=== PATIENT | female | born 1950 | race Caucasian/White ===

== ENCOUNTER 2018-11-26 22:19 | Emergency (ER) | payer MEDICARE, BC ==
[2018-11-26] MEDS ORDERED: METOCLOPRAMIDE HCL ORAL SOLN 10 MG/10 ML UDCUP PO ONE (23:53)
[2018-11-26] MEDS ORDERED: MAG HYDROX/AL HYDROX/SIMETH SUSP 30 ML UDCUP PO ONE (23:53)
[2018-11-26] MEDS ORDERED: LIDOCAINE 2% VISCOUS SOLN 20 ML UDCUP PO ONE (23:53)
--- NOTE | 2018-11-27 00:06 | ER Document Report ---
ED Medical Screen (RME) - General Chief Complaint: Lower Abdominal Pain Stated Complaint: ABDOMINAL PAIN Time Seen by Provider: 11/27/18 00:03 Primary Care Provider: OLGA THOMPSON MD [Primary Care Provider] - Follow up as needed TRAVEL OUTSIDE OF THE [place] IN LAST 30 DAYS: No - HPI Notes: 11/27/18 00:04 Patient is a 68-year-old female with a history of IBS-D and acid reflux presents to the emergency department for the chief complaint of abdominal pain and colon spasming. Patient states that earlier today she developed left flank pain that radiates into the left lower quadrant. Patient states that it feels like a colon spasm. She denies diarrhea but states that the stool is soft and appears to be coming out faster. Patient does report a change in her diet with incre ased liquids and fruit. Patient states that she believes that the change in diet has an exacerbation of her IBS. Patient also reports a continuous acid reflux and an aching type sensation in her epigastric area. - Related Data Allergies/Adverse Reactions: cimetidine [From Tagamet] Allergy (Verified 11/26/18 23:45) loratadine [From Claritin] Allergy (Verified 11/26/18 23:45) Past Medical History Endocrine Medical History: Reports: Hx Diabetes Mellitus Type 2 - "boarderline" Renal/ Medical History: Denies: Hx Peritoneal Dialysis GI Medical History: Reports: Hx Gastroesophageal Reflux Disease Past Surgical History: Reports: Hx Hysterectomy Physical Exam - Vital signs Vitals: Temp Pulse Resp BP 98.2 F 63 18 144/60 H 11/26/18 22:25 11/26/18 22:25 11/26/18 22:25 11/26/18 22:25 - Abdominal Inspection: Normal Distension: No distension Bowel sounds: Normal Tenderness: Nontender Organomegaly: No organomegaly Course - Re-evaluation Re-evalutation: 11/27/18 00:06 I have greeted and performed a rapid initial assessment of this patient. A comprehensive ED assessment and evaluation of the patient, analysis of test results and completion of the medical decision making process will be conducted by additional ED providers. - Vital Signs Vital signs: Temp Pulse Resp BP Pulse Ox 98.2 F 63 18 144/60 H 11/26/18 22:25 11/26/18 22:25 11/26/18 22:25 11/26/18 22:25 Doctor's Discharge - Discharge Referrals: OLGA THOMPSON MD [Primary Care Provider] - Follow up as needed
[2018-11-27 00:19] LABS: ABSOLUTE LYMPHOCYTES (AUTO) 2.1 10^3/uL (0.5-4.7); ABSOLUTE MONOCYTES (AUTO) 0.5 10^3/uL (0.1-1.4); ABSOLUTE NEUT (AUTO) 11.4 10^3/uL (1.7-8.2); BASOPHILS % (AUTO) 0.2 % (0-2); HEMATOCRIT 42.7 % (36.0-47.0); HEMOGLOBIN 14.1 g/dL (12.0-15.5); LYMPHOCYTES % (AUTO) 14.7 % (13-45); MEAN CORPUSCULAR HEMOGLOBIN 30.6 pg (27.0-33.4); MEAN CORPUSCULAR VOLUME 93 fl (80-97); MONOCYTES % (AUTO) 3.8 % (3-13); PLATELET COUNT 312 10^3/uL (150-450); RED CELL DISTRIBUTION WIDTH 12.5 % (11.5-14.0); SEGMENTED NEUTROPHILS % (AUTO) 81.3 % (42-78); TOTAL CELLS COUNTED % (AUTO) 100 %
[2018-11-27 00:21] LABS: APPEARANCE,URINE CLEAR; BILIRUBIN,URINE NEGATIVE (NEGATIVE); COLOR,URINE YELLOW; GLUCOSE, URINE NEGATIVE (NEGATIVE); KETONES,URINE 20 mg/dL (NEGATIVE); LEUKOCYTE ESTERASE,URINE NEGATIVE (NEGATIVE); NITRITE,URINE NEGATIVE (NEGATIVE); PROTEIN,URINE NEGATIVE (NEGATIVE); URINE SPECIFIC GRAVITY 1.019; UROBILINOGEN,URINE NEGATIVE mg/dL (<2.0)
[2018-11-27 00:35] LABS: ALANINE AMINOTRANSFERASE 25 U/L (9-52); ALBUMIN 4.8 g/dL (3.5-5.0); ALKALINE PHOSPHATASE 77 U/L (38-126); ANION GAP 12 (5-19); ASPARTATE AMINO TRANSFERASE 17 U/L (14-36); BILIRUBIN,DIRECT 0.3 mg/dL (0.0-0.4); BILIRUBIN,TOTAL 0.5 mg/dL (0.2-1.3); BLOOD UREA NITROGEN 27 mg/dL (7-20); CALCIUM 10.5 mg/dL (8.4-10.2); CARBON DIOXIDE 27 mmol/L (22-30); CHLORIDE 104 mmol/L (98-107); GLUCOSE 143 mg/dL (75-110); LIPASE 60.9 U/L (23-300); POTASSIUM 4.9 mmol/L (3.6-5.0); SODIUM 143.4 mmol/L (137-145); TOTAL PROTEIN 7.4 g/dL (6.3-8.2)
[2018-11-27] MEDS ORDERED: DICYCLOMINE HCL INJ 20 MG/2 ML AMPULE IM ONE (01:17)
--- NOTE | 2018-11-27 02:42 | RADIOLOGY REPORT (SQ) ---
CLINICAL HISTORY: abdominal pain COMPARISON: None. TECHNIQUE: XR ABDOMEN 2 VIEWS SUPINE ERECT 11/27/2018 2:10 AM CDT FINDINGS: There is large amount of stool. There is a calcification near the lower pole of the left kidney measuring 7 mm. Osseous structures are grossly unremarkable. IMPRESSION: Constipation. Possible left nephrolithiasis.
--- NOTE | 2018-11-27 02:53 | ER Document Report ---
ED General - General Chief Complaint: Lower Abdominal Pain Stated Complaint: ABDOMINAL PAIN Time Seen by Provider: 11/27/18 00:03 Primary Care Provider: OLGA THOMPSON MD [HONORARY] - Follow up as needed Notes: Patient is a pleasant 68-year-old female presents with complaint of some abdominal pain is mostly in upper and left side of the abdomen. Some nausea. No vomiting. No diarrhea. Last bowel movement was this morning. No blood in her stool. She does history irritable bowel syndrome and says she feels as if she is having bowel spasm. No fevers. No other complaints at this time. TRAVEL OUTSIDE OF THE [place] IN LAST 30 DAYS: No - Related Data Allergies/Adverse Reactions: cimetidine [From Tagamet] Allergy (Verified 11/26/18 23:45) loratadine [From Claritin] Allergy (Verified 11/26/18 23:45) Past Medical History - Social History Smoking Status: Never Smoker Frequency of alcohol use: None Drug Abuse: None Family History: Reviewed & Not Pertinent Patient has suicidal ideation: No Patient has homicidal ideation: No Endocrine Medical History: Reports: Hx Diabetes Mellitus Type 2 - "boarderline" Renal/ Medical History: Denies: Hx Peritoneal Dialysis GI Medical History: Reports: Hx Gastroesophageal Reflux Disease Past Surgical History: Reports: Hx Hysterectomy Review of Systems - Review of Systems Notes: My Normal Review Basic REVIEW OF SYSTEMS: CONSTITUTIONAL : Denies fever, chills, or sweats. Denies recent illness. CARDIOVASCULAR: Denies chest pain. RESPIRATORY: Denies cough, cold, or chest congestion. Denies shortness of breath, difficulty breathing, or wheezing. GASTROINTESTINAL: As abdominal pain. Denies nausea, vomiting, or diarrhea. MUSCULOSKELETAL: Denies neck or back pain or joint pain or swelling. SKIN: Denies rash or skin lesions. NEUROLOGICAL: Denies altered mental status. ALL OTHER SYSTEMS REVIEWED AND NEGATIVE. Physical Exam - Vital signs Vitals: Temp Pulse Resp BP 98.2 F 63 18 144/60 H 11/26/18 22:25 11/26/18 22:25 11/26/18 22:25 11/26/18 22:25 - Notes Notes: General Appearance: Well nourished, alert, cooperative, no acute distress, mild obvious discomfort. Vitals: reviewed, See vital signs table. Head: no swelling or tenderness to the head Eyes: PERRL, EOMI, Conjuctiva clear Mouth: No decreasd moisture Lungs: No wheezing, No rales, No rhonci, No accessory muscle use, good air exchange bilaterally. Heart: Normal rate, Regular rythm, No murmur, no rub Abdomen: Normal BS, soft, No rigidity, No reproducible abdominal tenderness to palpation, No guarding, no rebound, no abdominal masses, no organomegaly Extremities: good pulses in all extremities, no swelling or tenderness in the e xtremities, no edema. Skin: warm, dry, appropriate color, no rash Neuro: speech clear, oriented x 3, normal affect, responds appropriately to questions. Course - Re-evaluation Re-evalutation: 11/27/18 03:04 Patient's x-ray shows evidence of constipation. This would make sense conjunction with her irritable bowel syndrome and the bowel spasms she is been having. She looks well. Says she feels improved. We will place her MiraLAX. She states she is been on MiraLAX in the past with similar things have happened. I informed her to have a low threshold to return to ER if she has any vomiting, fevers, worsening pain, blood in her stool, or if she feels unwell in any way. Patient agrees with plan will be discharged home. Dictation of this chart was performed using voice recognition software; therefore, there may be some unintended grammatical errors. 11/27/18 03:04 - Vital Signs Vital signs: Temp Pulse Resp BP Pulse Ox 98.2 F 63 18 144/60 H 11/26/18 22:25 11/26/18 22:25 11/26/18 22:25 11/26/18 22:25 - Laboratory Result Diagrams: 11/26/18 23:55 11/26/18 23:55 Laboratory results interpreted by me: 11/26/18 11/26/18 11/26/18 23:55 23:55 23:55 WBC 14.0 H Seg Neutrophils % 81.3 H Absolute Neutrophils 11.4 H BUN 27 H Est GFR (Non-Af Amer) 52 L Glucose 143 H Calcium 10.5 H Urine Ketones 20 H Discharge - Discharge Clinical Impression: Abdominal pain Qualifiers: Abdominal location: generalized Qualified Code(s): R10.84 - Generalized abdominal pain Condition: Good Disposition: HOME, SELF-CARE Additional Instructions: Your x-ray shows that you have significant constipation. We will place you on MiraLAX. Blood work did not show any concerning findings. I suspect your irritable bowel syndrome is probably causing some constipation. I have prescribed Bentyl to help with any bowel spasm. Only take it as needed no more than 3 times a day. Please follow-up with your doctor this coming week for reevaluation. Return to the ER immediately for worsening pain, fevers, vomiting, or any blood in your stool. Prescriptions: Dicyclomine HCl [Bentyl 10 mg Capsule] 1 cap PO TID #20 cap Polyethylene Glycol 3350 [Miralax] 1 cap PO DAILY #527 powder Referrals: OLGA THOMPSON MD [HONORARY] - Follow up as needed
[2018-11-27 03:09] VITALS: BP 134/72
== END 2018-11-27 03:06 | disposition home or self-care (01) ==
LOC: ER 22:19
DX: R10.84 Generalized abdominal pain (principal); R10.30 Lower abdominal pain, unspecified; E11.9 Type 2 diabetes mellitus without complications
CPT/HCPCS: 99284; 96372; 36415; 83690; 85025; 80053; 81001; 74019; J0500; J3490; A9270

== ENCOUNTER 2018-12-01 14:34 | Emergency (ER) | payer MEDICARE, BC ==
[2018-12-01] MEDS ORDERED: KETOROLAC TROMETHAMINE INJ/PF 30 MG/1 ML SDV IV ONE (15:12)
[2018-12-01] MEDS ORDERED: NORMAL SALINE 1000 ML 1,000 ML IV ONE (15:12)
--- NOTE | 2018-12-01 15:13 | ER Document Report ---
ED Medical Screen (RME) - General Chief Complaint: Abdominal Pain >50 Stated Complaint: ABDOMINAL PAIN Time Seen by Provider: 12/01/18 15:05 Primary Care Provider: GONZALEZ LARA PA-C [Primary Care Provider] - Follow up as needed TRAVEL OUTSIDE OF THE [place] IN LAST 30 DAYS: No - HPI Notes: 12/01/18 15:10 Patient is a 68-year-old female with a history of irritable bowel syndrome who presents complaining of left flank pain and intermittent left mid/upper abdominal pain. Patient states that she has had some fluctuations in her pain, but has become relatively constant. Patient states that this pain has been ongoing for the past 5 days and she was evaluated at that time and was diagnosed with constipation. Her x-ray also revealed possible nephrolithiasis. She is otherwise urinating normally. Patient states that she is having bowel movements that she states is like diarrhea with small pieces in it. No other concerns or complaints at this time. Denies BOB, fever, neck pain, URI, CP, SOB, dysuria, or rash. I have treated and performed a rapid initial assessment of this patient. A comprehensive ED assessment and evaluation of the patient, analysis of test results and completion of medical decision making process will be conducted by additional ED providers. Will defer imaging to main side provider. PHYSICAL EXAMINATION: GENERAL: Well-appearing, well-nourished and in no acute distress. A&Ox4. Answers questions appropriately. LUNGS: Breath sounds clear to auscultation bilaterally and equal. No wheezes rales or rhonchi. HEART: Regular rate and rhythm without murmurs, rubs, gallops. ABDOMEN: Soft, nondistended abdomen. No guarding, no rebound. Normal bowel sounds present. + mild left CVA tenderness. grossly non-tender. (cannot elicit thorough abd exam w/o bed, however). Extremities: No cyanosis, clubbing, or edema b/l. NEUROLOGICAL: Normal speech, normal gait. PSYCH: Normal mood, normal affect. - Related Data Allergies/Adverse Reactions: cimetidine [From Tagamet] Allergy (Verified 12/01/18 14:42) loratadine [From Claritin] Allergy (Verified 12/01/18 14:42) Past Medical History Endocrine Medical History: Reports: Hx Diabetes Mellitus Type 2 - "boarderline" Renal/ Medical History: Denies: Hx Peritoneal Dialysis GI Medical History: Reports: Hx Gastroesophageal Reflux Disease Past Surgical History: Reports: Hx Hysterectomy Physical Exam - Vital signs Vitals: Temp Pulse Resp BP Pulse Ox 99.3 F 75 16 120/67 97 12/01/18 14:50 12/01/18 14:50 12/01/18 14:50 12/01/18 14:50 12/01/18 14:50 Course - Vital Signs Vital signs: Temp Pulse Resp BP Pulse Ox 99.3 F 75 16 120/67 97 12/01/18 14:50 12/01/18 14:50 12/01/18 14:50 12/01/18 14:50 12/01/18 14:50 Doctor's Discharge - Discharge Referrals: GONZALEZ LARA PA-C [Primary Care Provider] - Follow up as needed
[2018-12-01 15:46] LABS: ABSOLUTE LYMPHOCYTES (AUTO) 2.6 10^3/uL (0.5-4.7); ABSOLUTE MONOCYTES (AUTO) 1.4 10^3/uL (0.1-1.4); ABSOLUTE NEUT (AUTO) 10.1 10^3/uL (1.7-8.2); BASOPHILS % (AUTO) 0.3 % (0-2); EOSINOPHILS % (AUTO) 0.1 % (0-6); HEMATOCRIT 41.8 % (36.0-47.0); HEMOGLOBIN 13.9 g/dL (12.0-15.5); LYMPHOCYTES % (AUTO) 18.1 % (13-45); MEAN CORPUSCULAR HEMOGLOBIN 30.4 pg (27.0-33.4); MEAN CORPUSCULAR HGB CONC 33.1 g/dL (32.0-36.0); MEAN CORPUSCULAR VOLUME 92 fl (80-97); PLATELET COUNT 217 10^3/uL (150-450); RED BLOOD COUNT 4.56 10^6/uL (3.72-5.28); RED CELL DISTRIBUTION WIDTH 12.5 % (11.5-14.0); SEGMENTED NEUTROPHILS % (AUTO) 71.5 % (42-78); TOTAL CELLS COUNTED % (AUTO) 100 %; WHITE BLOOD COUNT 14.2 10^3/uL (4.0-10.5)
[2018-12-01 16:09] LABS: ALANINE AMINOTRANSFERASE 49 U/L (9-52); ALBUMIN 4.3 g/dL (3.5-5.0); ALKALINE PHOSPHATASE 167 U/L (38-126); ANION GAP 15 (5-19); ASPARTATE AMINO TRANSFERASE 29 U/L (14-36); BILIRUBIN,DIRECT 0.3 mg/dL (0.0-0.4); BILIRUBIN,TOTAL 0.9 mg/dL (0.2-1.3); BLOOD UREA NITROGEN 21 mg/dL (7-20); CALCIUM 9.5 mg/dL (8.4-10.2); CARBON DIOXIDE 27 mmol/L (22-30); CHLORIDE 100 mmol/L (98-107); GLUCOSE 116 mg/dL (75-110); LIPASE 48.1 U/L (23-300); POTASSIUM 4.1 mmol/L (3.6-5.0); SODIUM 141.5 mmol/L (137-145); TOTAL PROTEIN 6.8 g/dL (6.3-8.2)
--- NOTE | 2018-12-01 16:14 | ER Document Report ---
ED General - General Chief Complaint: Abdominal Pain >50 Stated Complaint: ABDOMINAL PAIN Time Seen by Provider: 12/01/18 15:05 Primary Care Provider: GONZALEZ LARA PA-C [Primary Care Provider] - Follow up in 3-5 days Notes: Patient is a 68-year-old female that presents to the emergency department for chief complaint of left-sided abdominal pain. Patient was recently seen here 5 days ago, was diagnosed with constipation and discharged home with MiraLAX, she is not improving. She is often not had severe left-sided pain is radiating towards the groin now. She states she has not been urinating as much as possib le, but denies having any dysuria or hematuria. Denies prior history of kidney stones. She states that the pain will radiate up towards her left flank as well. She did get some relief from Toradol that was ordered in triage, but is now worse again. She also states she said history of IBS with diarrhea, but more recently has had constipation that has not been much improved with the MiraLAX that she was prescribed. She denies any fevers, chills, night sweats, chest pain, shortness of breath or difficulty breathing. Past Medical History: IBS Past Surgical History: Denies recent or pertinent surgical history Social History: Denies tobacco, alcohol or drug use. Family History: Reviewed and noncontributory for presenting illness Allergies: Reviewed, see documented allergy list. REVIEW OF SYSTEMS: Other than noted above, the 12 point review of systems was reviewed with the patient and were negative, all pertinent findings are included in the HPI. PHYSICAL EXAMINATION: Vital signs reviewed, nursing noted reviewed. GENERAL: She appears uncomfortable on exam, but in no immediate distress HEAD: Atraumatic, normocephalic. EYES: Eyes appear normal, extraocular movements intact, sclera anicteric, conjunctiva are normal. ENT: nares patent, oropharynx clear without exudates. Moist mucous membranes. NECK: Normal range of motion, supple without lymphadenopathy LUNGS: Breath sounds clear to auscultation bilaterally and equal. No wheezes rales or rhonchi. HEART: Regular rate and rhythm without murmurs ABDOMEN: Soft, left CVA tenderness with palpation as well as left lower quadrant tenderness to palpation, normoactive bowel sounds. No rebound, guarding, or rigidity. No masses appreciated. EXTREMITIES: Nontender, good range of motion, no pitting or edema. NEUROLOGICAL: No focal neurological deficits. Moves all extremities spontaneously Motor and sensory grossly intact on exam. PSYCH: Normal mood, normal affect. SKIN: Warm, Dry, normal turgor, no rashes or lesions noted on exposed skin TRAVEL OUTSIDE OF THE [place] IN LAST 30 DAYS: No - Related Data Allergies/Adverse Reactions: cimetidine [From Tagamet] Allergy (Verified 12/01/18 14:42) loratadine [From Claritin] Allergy (Verified 12/01/18 14:42) Past Medical History - Social History Smoking Status: Former Smoker Family History: Reviewed & Not Pertinent Patient has suicidal ideation: No Patient has homicidal ideation: No Endocrine Medical History: Reports: Hx Diabetes Mellitus Type 2 - "boarderline" Renal/ Medical History: Denies: Hx Peritoneal Dialysis GI Medical History: Reports: Hx Gastroesophageal Reflux Disease Past Surgical History: Reports: Hx Hysterectomy Physical Exam - Vital signs Vitals: Temp Pulse Resp BP Pulse Ox 99.3 F 75 16 120/67 97 12/01/18 14:50 12/01/18 14:50 12/01/18 14:50 12/01/18 14:50 12/01/18 14:50 Course - Re-evaluation Re-evalutation: Patient seen and examined vital signs reviewed. Laboratory data and/or imaging were ordered as appropriate for the patient's presenting symptoms and complaint, with consideration of any critical or life threatening conditions that may be associated with their obtained history and exam as noted above. Patient was treated with IV fluids, Toradol by triage, she is also given Zofran and morphine for her pain Results were reviewed when available and demonstrated mild leukocytosis, no renal impairment, normal LFTs, UA was not consistent with urinary tract infection, her CT of her abdomen and pelvis did reveal a distal ureteral stone on the left side, causing hydronephrosis, which is consistent with the patient's clinically presenting symptoms. The patient was re-evaluated and was stable and improved Evaluation was most consistent with left ureteral stone, it is distal, hopefully at the position incident will pass, patient was given Flomax in the ED, as well as a prescription, she is also given a prescription for naproxen and [place] to take if needed for pain she is advised if her symptoms are not improving or worsening that she should return to the emergency department immediately including developing a fever. Results were discussed with the patient at this point, after careful consideration I feel that that patient can be discharged from the emergency department, the patient was educated treatments and reasons to return to the emergency department based on their presumed diagnosis as noted above, they were advised to followup with a primary care physician in 2-3 days. Patient was agreeable to plan of care. *Note is created using voice recognition software and may contain spelling, syntax or grammatical errors. Laboratory 12/01/18 12/01/18 12/01/18 15:30 15:30 17:01 WBC 14.2 H RBC 4.56 Hgb 13.9 Hct 41.8 MCV 92 MCH 30.4 MCHC 33.1 RDW 12.5 Plt Count 217 Seg Neutrophils % 71.5 Lymphocytes % 18.1 Monocytes % 10.0 Eosinophils % 0.1 Basophils % 0.3 Absolute Neutrophils 10.1 H Absolute Lymphocytes 2.6 Absolute Monocytes 1.4 Absolute Eosinophils 0.0 Absolute Basophils 0.0 Sodium 141.5 Potassium 4.1 Chloride 100 Carbon Dioxide 27 Anion Gap 15 BUN 21 H Creatinine 1.08 Est GFR ( Amer) > 60 Est GFR (Non-Af Amer) 51 L Glucose 116 H Calcium 9.5 Total Bilirubin 0.9 Direct Bilirubin 0.3 Neonat Total Bilirubin Not Reportable Neonat Direct Bilirubin Not Reportable Neonat Indirect Bili Not Reportable AST 29 ALT 49 Alkaline Phosphatase 167 H Total Protein 6.8 Albumin 4.3 Lipase 48.1 Urine Color YELLOW Urine Appearance SLIGHTLY-CLOUDY Urine pH 5.0 Ur Specific [place] 1.020 Urine Protein NEGATIVE Urine Glucose (UA) NEGATIVE Urine Ketones TRACE H Urine Blood NEGATIVE Urine Nitrite NEGATIVE Urine Bilirubin NEGATIVE Urine Urobilinogen NEGATIVE Ur Leukocyte Esterase NEGATIVE Urine WBC (Auto) 2 Urine RBC (Auto) 3 Urine Bacteria (Auto) TRACE Squamous Epi Cells Auto 5 Urine Mucus (Auto) OCC Urine Ascorbic Acid NEGATIVE Abdomen/Pelvis CT 12/01/18 16:37 IMPRESSION: 5 mm stone distal left ureter. Marked hydronephrosis. - Vital Signs Vital signs: Temp Pulse Resp BP Pulse Ox 97.7 F 55 L 18 134/63 H 96 12/01/18 19:06 12/01/18 19:06 12/01/18 19:06 12/01/18 19:06 12/01/18 19:06 - Laboratory Result Diagrams: 12/01/18 15:30 12/01/18 15:30 Laboratory results interpreted by me: 12/01/18 12/01/18 12/01/18 15:30 15:30 17:01 WBC 14.2 H Absolute Neutrophils 10.1 H BUN 21 H Est GFR (Non-Af Amer) 51 L Glucose 116 H Alkaline Phosphatase 167 H Urine Ketones TRACE H Discharge - Discharge Clinical Impression: Ureteral stone Hydronephrosis Qualifiers: Hydronephrosis type: unspecified Qualified Code(s): N13.30 - Unspecified hydronephrosis Condition: Stable Disposition: HOME, SELF-CARE Additional Instructions: Please follow-up with the urologist, list has been provided below, one may be more available than the other to see you sooner. [email or web address] [address] [email or web address] [email or web address] [address] [facility] If your symptoms worsen your pain is not controlled at home with the prescribed medications, or you develop fever, please return to the emergency department as soon as possible. Prescriptions: Hydrocodone/Acetaminophen [[place] 5-325 mg Tablet] 1 tab PO Q6H PRN #15 tablet PRN Reason: ABDOMINAL PAIN Naproxen [Naprosyn] 500 mg PO BID PRN #30 tablet PRN Reason: FLANK PAIN Ondansetron [Zofran Odt 4 mg Tablet] 1 tab PO Q8H PRN #15 tab.rapdis PRN Reason: For Nausea/Vomiting Tamsulosin HCl [Flomax 0.4 mg Cap.sr] 0.4 mg PO DAILY #7 cap.sr.24h Referrals: GONZALEZ LARA PA-C [Primary Care Provider] - Follow up in 3-5 days
[2018-12-01] MEDS ORDERED: MORPHINE SULFATE 10 MG/ML INJ IV ONE (16:40)
[2018-12-01] MEDS ORDERED: RINGERS SOLUTION,LACTATED 1,000 ML IV ONE (16:41)
--- NOTE | 2018-12-01 17:34 | RADIOLOGY REPORT (SQ) ---
EXAM DESCRIPTION: CT ABD/PELVIS WITH IV ONLY COMPLETED DATE/TIME: 12/01/2018 5:08 pm REASON FOR STUDY: llq abdominal pain COMPARISON: None. TECHNIQUE: CT scan of the abdomen and pelvis performed using helical scanning technique with dynamic intravenous contrast injection. No oral contrast. Images reviewed with lung, soft tissue, and bone windows. Reconstructed coronal and sagittal MPR images reviewed. Delayed images for evaluation of the urinary system also acquired. All images stored on PACS. All CT scanners at this facility use dose modulation, iterative reconstruction, and/or weight based d osing when appropriate to reduce radiation dose to as low as reasonably achievable (ALARA). [facility]: Dose Right [facility]: CareDose [facility]: Dose Right [facility]: Teradose 4D [facility]: [employer] CONTRAST TYPE AND DOSE: contrast/concentration: Isovue 350.00 mg/ml; Total Contrast Delivered: 74.0 ml; Total Saline Delivered: 67.0 ml RENAL FUNCTION: GFR > 60. RADIATION DOSE: CT Rad equipment meets quality standard of care and radiation dose reduction techniq ues were employed. CTDIvol: NaN - NaN mGy. DLP: 0 mGy-cm.. LIMITATIONS: None. FINDINGS: LOWER CHEST: No significant findings. No nodules or infiltrates. LIVER: Normal size. No masses. No dilated ducts. SPLEEN: Normal size. No focal lesions. PANCREAS: No masses. No significant calcifications. No adjacent inflammation or peripancreatic fluid collections. Pancreatic duct not dilated. GALLBLADDER: No identified stones by CT criteria. No inflammatory changes to suggest cholecystitis. ADRENAL GLANDS: No significant masses or asymmetry. RIGHT KIDNEY AND URETER: Parapelvic cysts. No solid masses. 5 mm stone distal ureter. This measur es 1,079 HU. Marked hydronephrosis. LEFT KIDNEY AND URETER: Parapelvic cyst. No solid masses. No significant calcifications. No hydr onephrosis or hydroureter. AORTA AND VESSELS: No aneurysm. No dissection. Renal arteries, SMA, celiac without stenosis. RETROPERITONEUM: No retroperitoneal adenopathy, hemorrhage or masses. BOWEL AND PERITONEAL CAVITY: Sigmoid diverticulosis. No masses or inflammatory changes. No free flui d or peritoneal masses. APPENDIX: Surgically absent. PELVIS: No mass. No free fluid. Normal bladder. ABDOMINAL WALL: No masses. No hernias. BONES: No significant or acute findings. OTHER: No other significant finding. IMPRESSION: 5 mm stone distal left ureter. Marked hydronephrosis. TECHNICAL DOCUMENTATION: JOB ID: [id number] Quality ID # [id number]: Final reports with documentation of one or more dose reduction techniques (e.g., Au tomated exposure control, adjustment of the mA and/or kV according to patient size, use of iterative reconstruction technique) 2010 [employer]- All Rights Reserved Reading location - IP/workstation name: [email or web address]
[2018-12-01 17:39] LABS: APPEARANCE,URINE SLIGHTLY-CLOUDY; BILIRUBIN,URINE NEGATIVE (NEGATIVE); COLOR,URINE YELLOW; GLUCOSE, URINE NEGATIVE (NEGATIVE); KETONES,URINE TRACE mg/dL (NEGATIVE); LEUKOCYTE ESTERASE,URINE NEGATIVE (NEGATIVE); NITRITE,URINE NEGATIVE (NEGATIVE); PROTEIN,URINE NEGATIVE (NEGATIVE); UROBILINOGEN,URINE NEGATIVE mg/dL (<2.0)
[2018-12-01] MEDS ORDERED: TAMSULOSIN HCL 0.4 MG CAP.SR.24H PO ONE (17:43)
[2018-12-01 19:07] VITALS: BP 134/63
== END 2018-12-01 19:08 | disposition home or self-care (01) ==
LOC: ER 14:34
DX: N13.2 Hydronephrosis with renal and ureteral calculous obstruction (principal); R10.9 Unspecified abdominal pain; K59.00 Constipation, unspecified
CPT/HCPCS: 99284; 96361; 96374; 96375; 36415; 83690; 85025; 80053; 81001; 74177; J1885; J2270; A9270; J7030; J7120

== ENCOUNTER 2020-07-05 11:33 | Emergency (ER) | payer MEDICARE, BC ==
[2020-07-05] MEDS ORDERED: NORMAL SALINE 1000 ML 1,000 ML IV ONE (12:29)
--- NOTE | 2020-07-05 12:31 | ER Document Report ---
ED Medical Screen (RME) - General Chief Complaint: Urinary Frequency Stated Complaint: URINATION PAIN AND URGENCY Time Seen by Provider: 07/05/20 12:24 Primary Care Provider: GONZALEZ LARA PA-C [Primary Care Provider] - Follow up as needed Notes: Patient is a 70-year-old female presents emergency department with a chief complaint of lower abdominal pain and dysuria. States that she has had her symptoms for the past few days. Denies any fever. Reports some bilateral low back pain. Exam: Tenderness noted to bilateral low back upon percussion of CVA areas. I have greeted and performed a rapid initial assessment of this patient. A comprehensive ED assessment and evaluation of the patient, analysis of test results and completion of medical decision making process will be conducted by an additional ED providers. TRAVEL OUTSIDE OF THE [place] IN LAST 30 DAYS: No - Related Data Allergies/Adverse Reactions: cimetidine [From Tagamet] Allergy (Verified 12/01/18 14:42) Iodinated Contrast Media Allergy (Verified 07/05/20 12:25) iodine Allergy (Verified 07/05/20 12:25) loratadine [From Claritin] Allergy (Verified 12/01/18 14:42) Past Medical History Endocrine Medical History: Reports: Hx Diabetes Mellitus Type 2 - "boarderline" Renal/ Medical History: Denies: Hx Peritoneal Dialysis GI Medical History: Reports: Hx Gastroesophageal Reflux Disease Past Surgical History: Reports: Hx Hysterectomy Physical Exam - Vital signs Vitals: Temp Pulse Resp BP Pulse Ox 98.1 F 72 20 135/67 H 95 07/05/20 11:46 07/05/20 11:46 07/05/20 11:46 07/05/20 11:46 07/05/20 11:46 Course - Vital Signs Vital signs: Temp Pulse Resp BP Pulse Ox 98.1 F 72 20 135/67 H 95 07/05/20 11:46 07/05/20 11:46 07/05/20 11:46 07/05/20 11:46 07/05/20 11:46 Doctor's Discharge - Discharge Referrals: GONZALEZ LARA PA-C [Primary Care Provider] - Follow up as needed
[2020-07-05 12:47] LABS: APPEARANCE,URINE CLEAR; BILIRUBIN,URINE NEGATIVE (NEGATIVE); COLOR,URINE YELLOW; GLUCOSE, URINE NEGATIVE (NEGATIVE); KETONES,URINE NEGATIVE (NEGATIVE); PROTEIN,URINE NEGATIVE (NEGATIVE); UROBILINOGEN,URINE NEGATIVE mg/dL (<2.0)
[2020-07-05 13:09] LABS: ABSOLUTE BASOPHILS # (AUTO) 0.1 10^3/uL (0.0-0.2); ABSOLUTE LYMPHOCYTES (AUTO) 2.3 10^3/uL (0.5-4.7); ABSOLUTE MONOCYTES (AUTO) 0.5 10^3/uL (0.1-1.4); ABSOLUTE NEUT (AUTO) 5.5 10^3/uL (1.7-8.2); BASOPHILS % (AUTO) 0.7 % (0-2); EOSINOPHILS % (AUTO) 0.3 % (0-6); HEMATOCRIT 40.8 % (36.0-47.0); HEMOGLOBIN 14.1 g/dL (12.0-15.5); LYMPHOCYTES % (AUTO) 27.4 % (13-45); MEAN CORPUSCULAR HEMOGLOBIN 32.1 pg (27.0-33.4); MEAN CORPUSCULAR HGB CONC 34.6 g/dL (32.0-36.0); MEAN CORPUSCULAR VOLUME 93 fl (80-97); MONOCYTES % (AUTO) 6.3 % (3-13); PLATELET COUNT 263 10^3/uL (150-450); RED BLOOD COUNT 4.39 10^6/uL (3.72-5.28); RED CELL DISTRIBUTION WIDTH 12.5 % (11.5-14.0); SEGMENTED NEUTROPHILS % (AUTO) 65.3 % (42-78); TOTAL CELLS COUNTED % (AUTO) 100 %; WHITE BLOOD COUNT 8.4 10^3/uL (4.0-10.5)
[2020-07-05 13:26] LABS: ALBUMIN 4.4 g/dL (3.5-5.0); ALKALINE PHOSPHATASE 61 U/L (38-126); ANION GAP 5 (5-19); ASPARTATE AMINO TRANSFERASE 20 U/L (14-36); BILIRUBIN,DIRECT 0.1 mg/dL (0.0-0.4); BILIRUBIN,TOTAL 0.5 mg/dL (0.2-1.3); BLOOD UREA NITROGEN 13 mg/dL (7-20); CALCIUM 10.1 mg/dL (8.4-10.2); CARBON DIOXIDE 32 mmol/L (22-30); CHLORIDE 102 mmol/L (98-107); GLUCOSE 144 mg/dL (75-110); POTASSIUM 5.2 mmol/L (3.6-5.0); TOTAL PROTEIN 6.8 g/dL (6.3-8.2)
--- NOTE | 2020-07-05 14:25 | ER Document Report ---
ED General - General Chief Complaint: Urinary Frequency Stated Complaint: URINATION PAIN AND URGENCY Time Seen by Provider: 07/05/20 12:24 Primary Care Provider: GONZALEZ LARA PA-C [NO LOCAL MD] - Follow up as needed TRAVEL OUTSIDE OF THE [place] IN LAST 30 DAYS: No - HPI Notes: Chief Complaint: dysuria Historian: History obtained from patient HPI: This is a 70yo female c/o dysuria and suprapubic discomfort X 2 days. has a hx of kidney stones but denies gross hematuria and says this does not feel like her prior kidney stones. Denies fever, chills, n/v. mild bilat low back pain. Denies vaginal discharge or concern for STD. no treatments tried ROS: Constitutional: no fevers. HEENT: no BOB, sore throat, or vision changes. CV: no chest pain or palpitations. Resp: no cough or SOB. GI: no abdominal pain, or n/v/d. : dysuria, suprapubic pain MSK: bilat low back pain Skin: no rashes or itching. Neuro: no seizures, weakness, numbness, or confusion. Hematological: no ecchymosis or easy bleeding. Endocrine: no polyuria/polydipsia, no heat/cold intolerance. Psych: no SI/HI, AH/VH or memory loss. PMHx: Reviewed and agree as charted by RN. PSHx: Reviewed and agree as charted by RN. SOCHx: Reviewed and agree as charted by RN. FHX: No significant familial comorbid conditions directly related to patient complaint Current Medications: Reviewed and agree with the patient medications as charted by the RN. Allergies: Reviewed and agree with the listed allergies as charted by the RN Physical Exam: Vitals: Reviewed in chart as documented by RN. General: Alert and in NAD. Head: Normocephalic; atraumatic Eyes: PERRLA, Conjunctivae clear sclerae non-icteric bilat ENT: no soft palate swelling or uvular deviation Neck: trachea midline, no unilateral swelling/tenderness/lymphadenopathy CV: RRR, no M/R/G; symmetric distal pulses Resp: respirations even and unlabored, CTA bilat. GI: abd soft and nondistended. mild suprapubic tenderness- no guarding/rebound normal BS. no masses/HSM. mild bilat cvat MSK: FROM of all extremities. No midline CTL spine tenderness/deformity Skin: warm, moist, good turgor. no rash/lesions Neuro: Alert and oriented X 4. following CN 2-12 intact. no unilateral weakness/numbness Psych: No SI/HI or AH/VH. Medical Decision-Making: Medical Decision-Making: Differential includes pyelonephritis, UTI, cystitis, STD, PID, BV, nephrolithiasis, ureterolithiasis, ectopic , IUP, ovarian torsion, ovar vidhi cyst, etc. plan- triage ordered basic labs, UA, and 1 liter NS IVF. potassium 5.2. pt has no cp or sob. 1 liter IV NS infusing. likely will dilute potassium down to normal range UA- large leuk esterase, WBC and bacteria on micro. Will empirically start treatment for UTI w/ keflex. pcp f/u in 2-3 days. reflex culture pending. return factors discussed. - Related Data Allergies/Adverse Reactions: cimetidine [From Tagamet] Allergy (Verified 12/01/18 14:42) Iodinated Contrast Media Allergy (Verified 07/05/20 12:25) iodine Allergy (Verified 07/05/20 12:25) loratadine [From Claritin] Allergy (Verified 12/01/18 14:42) Past Medical History - Social History Smoking Status: Unknown if Ever Smoked Family History: Reviewed & Not Pertinent Endocrine Medical History: Reports: Hx Diabetes Mellitus Type 2 - "boarderline" Renal/ Medical History: Denies: Hx Peritoneal Dialysis GI Medical History: Reports: Hx Gastroesophageal Reflux Disease Past Surgical History: Reports: Hx Hysterectomy Physical Exam - Vital signs Vitals: Temp Pulse Resp BP Pulse Ox 98.1 F 72 20 135/67 H 95 07/05/20 11:46 07/05/20 11:46 07/05/20 11:46 07/05/20 11:46 07/05/20 11:46 Course - Vital Signs Vital signs: Temp Pulse Resp BP Pulse Ox 99.4 F 60 16 128/55 H 100 07/05/20 16:00 07/05/20 16:00 07/05/20 16:00 07/05/20 16:00 07/05/20 16:00 - Laboratory Results Result Diagrams: 07/05/20 12:55 07/05/20 12:55 Laboratory Results Interpreted: 07/05/20 07/05/20 11:43 12:55 Potassium 5.2 H Carbon Dioxide 32 H Glucose 144 H Urine Blood SMALL H Leukocyte Esterase Rfl MODERATE H Critical Laboratory Results Reviewed: No Critical Results - Radiology Results Critical Radiology Results Reviewed: No Critical Results Discharge - Discharge Clinical Impression: UTI (urinary tract infection) Qualifiers: Urinary tract infection type: site unspecified Hematuria presence: with hematuria Qualified Code(s): N39.0 - Urinary tract infection, site not specified Condition: Stable Disposition: HOME, SELF-CARE Instructions: Urinary Tract Infection ([facility]) Prescriptions: Cephalexin Monohydrate [Keflex 500 mg Capsule] 500 mg PO Q6H 5 Days #28 capsule Referrals: GONZALEZ LARA PA-C [NO LOCAL MD] - Follow up as needed
[2020-07-05 16:01] VITALS: BP 128/55
== END 2020-07-05 16:00 | disposition home or self-care (01) ==
LOC: ER 11:33
DX: N39.0 Urinary tract infection, site not specified (principal); R35.0 Frequency of micturition; R30.0 Dysuria; R10.30 Lower abdominal pain, unspecified; M54.5 Low back pain; Z90.710 Acquired absence of both cervix and uterus
CPT/HCPCS: 99284; 96360; 36415; 87086; 85025; 87088; 80053; 81001; 87186; J7030

== ENCOUNTER 2020-07-29 21:39 | Emergency (ER) | payer MEDICARE, BC ==
[2020-07-29 23:08] LABS: APPEARANCE,URINE CLOUDY; BILIRUBIN,URINE NEGATIVE (NEGATIVE); COLOR,URINE YELLOW; GLUCOSE, URINE NEGATIVE (NEGATIVE); KETONES,URINE NEGATIVE (NEGATIVE); LEUKOCYTE ESTERASE,URINE MODERATE (NEGATIVE); NITRITE,URINE NEGATIVE (NEGATIVE); PROTEIN,URINE 30 mg/dL (NEGATIVE); URINE SPECIFIC GRAVITY 1.016; UROBILINOGEN,URINE NEGATIVE mg/dL (<2.0)
--- NOTE | 2020-07-29 23:29 | ER Document Report ---
ED Medical Screen (RME) - General Chief Complaint: Urinary Problem Stated Complaint: POSSIBLE UTI Time Seen by Provider: 07/29/20 22:54 Primary Care Provider: MIHRI LIM PROOF CARRIER [Primary Care Provider] - Follow up as needed Notes: HPI; 70-year-old female presents to the emergency room with hematuria that started earlier today. History of frequent UTIs. Denies fevers but complains of dysuria. Has never followed up with urology for her frequent UTIs. Last ER July 05 for similar symptoms. States that happens after sexual activity which she states she had over the weekend. Denies fevers. No nausea. No vomiting. PE: Alert and oriented x3. Lungs: Clear to auscultation without rales, rhonchi, wheezes. Heart: Regular rate rhythm without murmurs, rubs, gallops. I have greeted and performed a rapid initial assessment of this patient. A comprehensive ED assessment and evaluation of the patient, analysis of test results and completion of the medical decision making process will be conducted by additional ED providers. I have specifically instructed the patient or family members with the patient to immediately return to any nursing staff should anything change in the patient's condition or with their chief complaint. TRAVEL OUTSIDE OF THE [place] IN LAST 30 DAYS: No - Related Data Allergies/Adverse Reactions: cimetidine [From Tagamet] Allergy (Verified 07/29/20 22:55) Iodinated Contrast Media Allergy (Verified 07/29/20 22:55) iodine Allergy (Verified 07/29/20 22:55) loratadine [From Claritin] Allergy (Verified 07/29/20 22:55) Past Medical History - Social History Frequency of alcohol use: Occasional Drug Abuse: None Endocrine Medical History: Reports: Hx Diabetes Mellitus Type 2 - "boarderline" Renal/ Medical History: Denies: Hx Peritoneal Dialysis GI Medical History: Reports: Hx Gastroesophageal Reflux Disease Past Surgical History: Reports: Hx Hysterectomy Physical Exam - Vital signs Vitals: Temp Pulse Resp BP Pulse Ox 98.6 F 63 16 126/56 H 98 07/29/20 22:10 07/29/20 22:10 07/29/20 22:10 07/29/20 22:10 07/29/20 22:10 Course - Vital Signs Vital signs: Temp Pulse Resp BP Pulse Ox 98.6 F 63 16 126/56 H 98 07/29/20 22:10 07/29/20 22:10 07/29/20 22:10 07/29/20 22:10 07/29/20 22:10 - Laboratory Results Laboratory Results Interpreted: 07/29/20 21:47 Urine Protein 30 H Urine Blood LARGE H Ur Leukocyte Esterase MODERATE H Doctor's Discharge - Discharge Referrals: MIHIR LIM PROOF CARRIER [Primary Care Provider] - Follow up as needed
[2020-07-29 23:40] LABS: ABSOLUTE BASOPHILS # (AUTO) 0.1 10^3/uL (0.0-0.2); ABSOLUTE EOSINOPHILS # (AUTO) 0.2 10^3/uL (0.0-0.6); ABSOLUTE LYMPHOCYTES (AUTO) 3.6 10^3/uL (0.5-4.7); ABSOLUTE NEUT (AUTO) 11.7 10^3/uL (1.7-8.2); BASOPHILS % (AUTO) 0.5 % (0-2); HEMATOCRIT 39.6 % (36.0-47.0); HEMOGLOBIN 13.3 g/dL (12.0-15.5); MEAN CORPUSCULAR HEMOGLOBIN 31.2 pg (27.0-33.4); MEAN CORPUSCULAR HGB CONC 33.5 g/dL (32.0-36.0); MEAN CORPUSCULAR VOLUME 93 fl (80-97); MONOCYTES % (AUTO) 5.9 % (3-13); PLATELET COUNT 327 10^3/uL (150-450); RED BLOOD COUNT 4.25 10^6/uL (3.72-5.28); RED CELL DISTRIBUTION WIDTH 12.7 % (11.5-14.0); SEGMENTED NEUTROPHILS % (AUTO) 70.6 % (42-78); TOTAL CELLS COUNTED % (AUTO) 100 %; WHITE BLOOD COUNT 16.5 10^3/uL (4.0-10.5)
[2020-07-29 23:57] LABS: ALBUMIN 4.2 g/dL (3.5-5.0); ALKALINE PHOSPHATASE 70 U/L (38-126); ASPARTATE AMINO TRANSFERASE 22 U/L (14-36); BILIRUBIN,DIRECT 0.1 mg/dL (0.0-0.4); BILIRUBIN,TOTAL 0.3 mg/dL (0.2-1.3); BLOOD UREA NITROGEN 20 mg/dL (7-20); CHLORIDE 105 mmol/L (98-107); GLUCOSE 96 mg/dL (75-110); POTASSIUM 5.3 mmol/L (3.6-5.0); TOTAL PROTEIN 6.7 g/dL (6.3-8.2)
[2020-07-30 00:06] LABS: CARBON DIOXIDE 31 mmol/L (22-30)
[2020-07-30 00:07] LABS: ANION GAP 4 (5-19)
--- NOTE | 2020-07-30 00:40 | RADIOLOGY REPORT (SQ) ---
CLINICAL INDICATION: hematuria. . TECHNIQUE: Real time multiplanar ultrasonographic al scale imaging was obtained of the kidneys. 30 static images obtained. Additional cine loop COMPARISON: None. CORRELATION: None. FINDINGS: The right kidney measures 11.8 x 6.6 x 5.6 centimeters. Moderate hydronephrosis. No urolithiasis or solid lesion. The renal parenchyma is of normal contour and echogenicity. The left kidney measures 10.6 x 4.6 x 5.6 centimeters. No evidence of hydronephrosis, nephrolithiasis or solid mass lesion. The renal parenchyma is of normal contour and echogenicity. Visualized midline structures are unremarkable. Urinary bladder is anechoic. It is not digitally measured. IMPRESSION: Moderate right hydronephrosis.
--- NOTE | 2020-07-30 01:39 | RADIOLOGY REPORT (SQ) ---
EXAM DESCRIPTION: CT ABD/PELVIS NO ORAL OR IV CLINICAL HISTORY: 70 years Female, hematuria, hydronephrosis and uti COMPARISON: CT abdomen and pelvis 12/01/2018 TECHNIQUE: Axial images of the abdomen and pelvis were performed without the use of intravenous contrast, with sagittal and coronal reformatted images. This exam was performed according to our departmental dose-optimization program which includes use of Automated Exposure Control, adjustment of the mA and/or kV according to patient size and/or use of iterative reconstruction technique. FINDINGS: There is a small amount of vague opacity in the right middle lobe, raising the possibility of pneumonia. There is diverticulosis without diverticulitis. There are atherosclerotic changes involving the abdominal aorta, but there is no aneurysm. No evidence of appendicitis. No evidence of bowel obstruction. There is no significant radiographic abnormality of the liver, spleen, pancreas, adrenal glands or kidneys. There are right renal parapelvic cysts. IMPRESSION: Possible right middle lobe pneumonia. Other findings as described.
[2020-07-30] MEDS ORDERED: NITROFURANTOIN MONOHYD/M-CRYST 100 MG CAPSULE PO ONE (02:26)
[2020-07-30] MEDS ORDERED: ACETAMINOPHEN 325 MG TABLET PO ONE (02:26)
[2020-07-30] MEDS ORDERED: PHENAZOPYRIDINE HCL 100 MG TABLET PO ONE (02:26)
[2020-07-30] MEDS ORDERED: LEVOFLOXACIN 500 MG TABLET PO ONE (02:30)
--- NOTE | 2020-07-30 02:32 | ER Document Report ---
ED GI/ - General Chief Complaint: Urinary Problem Stated Complaint: POSSIBLE UTI Time Seen by Provider: 07/29/20 22:54 Primary Care Provider: MIHIR LIM DIVISION ENGINEER [Primary Care Provider] - Follow up as needed Mode of Arrival: Ambulatory Information source: Patient Notes: 70-year-old female presented to ED for complaint of hematuria earlier today. She states she has a history of frequent UTIs. She states she has not had any fevers just pain and burning with urination. She states she always gets a UTI after sexual intercourse and she had sexual intercourse this weekend. Last ER visit was in July 05 for similar symptoms. She has got Keflex at that time with with resolution of the UTI but did develop yeast infection. She states that the Keflex does make her very nauseated and she does not like the Keflex. Patient is alert oriented respirations regular nonlabored speaking in full sentences lungs clear to auscultation. Patient denies any fevers shortness of breath nausea or vomiting. Lungs were clear to auscultation with no rales rhonchi or wheezes. Constitutional: Negative for fever. HENT: Negative for sore throat. Eyes: Negative for visual changes. Cardiovascular: Negative for chest pain. Respiratory: Negative for shortness of breath. Gastrointestinal: Negative for abdominal pain, vomiting or diarrhea. Genitourinary: Pain burning with urine. She states she does get frequent urinations anytime she has sexual intercourse. She states she had sexual intercourse over the weekend and now she has a UTI. There was a lot of blood in her urine. She states she always has blood in her urine when she gets a UTI. She states she is having bladder spasms. Musculoskeletal: Negative for back pain. Skin: Negative for rash. Neurological: Negative for headaches, weakness or numbness. 10 point ROS negative except as marked above and in HPI. VITAL SIGNS: Within normal limits. GENERAL: No acute distress, non-toxic appearance. HEAD: Normal with no signs of head trauma. EYES: PERRLA, EOMI, conjunctiva normal, no discharge. EARS: Hearing grossly intact. NOSE: Normal. THROAT: Oropharynx is normal. NECK: Normal range of motion, no tenderness, supple, no lymphadenopathy, No adenopathy, no JVD. CHEST: Clear breath sounds bilaterally. No wheezes, rales, or rhonchi. CARDIAC: Regular rate and rhythm. S1 and S2, without murmurs, gallops, or rubs. VASCULAR: No Edema. Peripheral pulses normal and equal in all extremities. ABDOMEN: Normal and soft with no tenderness, no masses or pulsatile masses. GASTROINTESTINAL: Bowel sounds normal GENITOURINARY: Pain burning and hematuria, suprapubic tenderness no tenderness LYMPATHTIC: No lymphadenopathy noted. MUSCULOSKELETAL: Good range of motion of all major joints. Extremities without clubbing, cyanosis or edema. NEUROLOGICAL: Alert and oriented x 3. No focal sensory or strength deficits. Speech normal. Follows commands appropriately. PSYCHIATRIC: Normal Affect, judgement and mood. SKIN: Normal appearance with no rashes or lesions. TRAVEL OUTSIDE OF THE [place] IN LAST 30 DAYS: No - HPI Patient complains to provider of: Dysuria, Hematuria, Other - Suprapubic tenderness Onset: This afternoon Timing/Duration: Persistent Quality of pain: Burning, Pressure Severity at maximum: Moderate Severity in ED: Moderate Pain Level: 3 Location: Suprapubic Vaginal bleeding (Compared to normal period): None Associated symptoms: Hematuria, Urinary frequency, Urinary urgency, Other - Hematuria Exacerbated by: Other - Urination Relieved by: Denies Similar symptoms previously: Yes - Related Data Allergies/Adverse Reactions: cimetidine [From Tagamet] Allergy (Verified 07/29/20 22:55) Iodinated Contrast Media Allergy (Verified 07/29/20 22:55) iodine Allergy (Verified 07/29/20 22:55) loratadine [From Claritin] Allergy (Verified 07/29/20 22:55) Past Medical History - General Information source: Patient - Social History Smoking Status: Never Smoker Frequency of alcohol use: Occasional Drug Abuse: None Family History: Reviewed & Not Pertinent Patient has suicidal ideation: No Patient has homicidal ideation: No - Past Medical History Cardiac Medical History: Reports: Hx Hypercholesterolemia Pulmonary Medical History: Reports: None EENT Medical History: Reports: None Endocrine Medical History: Reports: Hx Diabetes Mellitus Type 2 - "boarderline" Renal/ Medical History: Reports: Hx Ovarian Cysts, Other - Fibroids Malignancy Medical History: Reports: None GI Medical History: Reports: Hx Gastroesophageal Reflux Disease, Hx Irritable Bowel Musculoskeletal Medical History: Reports None Skin Medical History: Reports None Psychiatric Medical History: Reports: None Traumatic Medical History: Reports: None Infectious Medical History: Reports: None Past Surgical History: Reports: Hx Appendectomy, Hx Hysterectomy, Hx Tonsillectomy Physical Exam - Vital signs Vitals: Temp Pulse Resp BP Pulse Ox 98.6 F 63 16 126/56 H 98 07/29/20 22:10 07/29/20 22:10 07/29/20 22:10 07/29/20 22:10 07/29/20 22:10 Course - Re-evaluation Re-evalutation: 07/30/20 02:41 UTI with hematuria. Renal ultrasound showed right hydronephrosis but CT abdomen pelvis noncontrasted to rule out stones with a UTI showed no hydronephrosis and no renal stones but did show an middle lobe right pneumonia. Will treat with Levaquin to cover the UTI and the pneumonia and will also treat with Pyridium and Tylenol. I did consult Dr. Stanley she recommended getting a Covid test before discharge. Patient was agreeable with this plan. We will test before sending home. - Vital Signs Vital signs: Temp Pulse Resp BP Pulse Ox 98.1 F 56 L 22 H 137/62 H 99 07/30/20 02:59 07/30/20 02:59 07/30/20 02:59 07/30/20 02:59 07/30/20 02:59 - Laboratory Results Result Diagrams: 07/29/20 23:28 07/29/20 23:28 Laboratory Results Interpreted: 07/29/20 07/29/20 07/29/20 21:47 23:28 23:28 WBC 16.5 H Absolute Neuts (auto) 11.7 H Potassium 5.3 H Carbon Dioxide 31 H Anion Gap 4 L Urine Protein 30 H Urine Blood LARGE H Ur Leukocyte Esterase MODERATE H Critical Laboratory Results Reviewed: No Critical Results - Radiology Results Critical Radiology Results Reviewed: No Critical Results Discharge - Discharge Clinical Impression: Person under investigation for COVID-19 Right middle lobe pneumonia Qualifiers: Pneumonia type: due to unspecified organism Qualified Code(s): J18.9 - Pneumonia, unspecified organism UTI (urinary tract infection) Qualifiers: Urinary tract infection type: acute cystitis Hematuria presence: with hematuria Qualified Code(s): N30.01 - Acute cystitis with hematuria Condition: Stable Disposition: HOME, SELF-CARE Instructions: COVID-19 Guidance for Persons Under Investigation Additional Instructions: PNEUMONIA: Your examination indicates that you have pneumonia. This is an infection of the lung tissue, usually caused by bacteria or a virus. Symptoms include cough, fever, shaking chills, chest pain, shortness of breath, and coughing up bloody sputum. Treatment for bacterial pneumonia includes rest, antibiotics for 10 to 14 days, increasing your clear liquid intake, a cool mist humidifier at your bedside, and fever medication. Often, a repeat chest X-ray is performed in a few weeks--even if you feel better--to ascertain whether the infection has completely resolved and no underlying lung problem is present. You should call the physician if you develop persistent vomiting, high fever that does not respond to fever medication, increasing shortness of breath, confusion, or lethargy. Also, failure to improve within two to three days is an indication for re-examination. URINARY TRACT INFECTION: Your evaluation indicates that you have a urinary tract infection. This is due to germs growing in the bladder. This is a common problem. This infection usually responds quickly to antibiotics. Your antibiotic should be taken exactly as prescribed. Drink plenty of fluids -- three to four quarts a day. Occasionally, a bladder anesthetic will be prescribed to help stop the feeling of urgency until the antibiotic has a chance to clear the infection. This may cause your urine to be dark orange. Certain urine infections require a culture. If the doctor obtained a culture, the results will be back in two days. You should call to see if a change in treatment is needed. A repeat urinalysis after you finish treatment is often recommended. The physician will let you know if further testing is required. Call the doctor if you develop fever, chills, flank pain, inability to urinate, or blood in the urine. LEVOFLOXACIN: You have been given an antibacterial agent, levofloxacin (Levaquin). This medicine is not related to the penicillins, sulfas, cephalosporins, or tetracyclines. It is often given to patients who are allergic to these drugs. It has been chosen for you either because other drugs are not appropriate, or because of the nature of your problem. Levaquin should not be taken with antacids, as these can decrease its effectiveness. It can be taken without regard to meals. LEVAQUIN SHOULD NOT BE TAKEN BY CHILDREN, NURSING WOMEN, OR WOMEN. Although Levaquin is usually well-tolerated, common side effects can include nausea and diarrhea. Contact your doctor if you experience any unusual symptoms while on this medication, such as joint pain or swelling, shortness of breath, wheezing, faintness, or hives. URINARY ANESTHETIC AGENT: You have been given a medication (Pyridium) for urinary tract discomfort. This medicine numbs the lining of the bladder and urethra, resulting in less pain, burning, and urgency. You may take it as needed, according to instructions. When the symptoms resolve, you can stop this medication (be sure to continue any other medications the doctor has given you). This medicine turns the urine a dark orange. It may stain underwear. Occasionally, it can cause nausea. Return for evaluation if there are any unexpected effects, such as itching, hives, or shortness of breath. USE OF ACETAMINOPHEN (Tylenol): Acetaminophen may be taken for pain relief or fever control. It's much safer than aspirin, offering a wider range of "safe" dosages. It is safe during . Some brand names are Tylenol, Panadol, Datril, Anacin 3, Tempra, and Liquiprin. Acetaminophen can be repeated every four hours. The following are maximum recommended dosages: WEIGHT Dose Drops Elixir Chewable(80mg) (LBS.) drprs=droppers tsp=teaspoon 6 40 mg 0.4 ml (1/2) 6-11 80 mg 0.8 ml (full) tsp 1 tab 12-16 120 mg 1 1/2 drprs 3/4 tsp 1 1/2 tabs 17-23 160 mg 2 drprs 1 tsp 2 tabs 24-30 240 mg 3 drprs 1 1/2 tsp 3 tabs 30-35 320 mg 2 tsp 4 tabs 36-41 360 mg 2 1/4 tsp 4 1/2 tabs 42-47 400 mg 2 1/2 tsp 5 tabs 48-53 480 mg 3 tsp 6 tabs 54-59 520 mg 3 1/4 tsp 6 1/2 tabs 60-64 560 mg 3 1/2 tsp 7 tabs 65-70 600 mg 3 3/4 tsp 7 1/2 tabs 71-76 640 mg 4 tsp 8 tabs 77-82 720 mg 4 1/2 tsp 9 tabs 83-88 800 mg 5 tsp 10 tabs >89 pounds or adults 650 mg to 900 mg Acetaminophen can be repeated every four hours. Maximum dose not to exceed 4000 mg a day. These maximum recommended dosages are slightly higher than the dosages written on the product container, but these dosages are very safe and below the toxic dosage for acetaminophen. Patient was provided with discharge information including: As a person under investigation for Covid 19, the [place] department of Health and Human Services, division of public health advises you to adhere to the following guidance until your test results are reported to you. If your test result is positive, you will receive additional information from your provider and your local health department at that time. Remain at home until you are cleared by the health provider or public health authorities. Keep a log of visitors to your home, notify any visitors to your home of your isolation status. If you plan to move to a new address or leave the county, notify the local health department in your County. Call your doctor or seek care if you have an urgent medical need. Before seeking medical care, call ahead to get instructions from the provider before arriving at the medical office clinic or hospital. Notify them that you are being tested for the virus that causes Covid 19 so that arrangements can be made, as necessary, to prevent transmission to others in the healthcare setting. Next, notify the local health department in your county. If a medical emergency arises and you need to call 911, inform the first responders that you are being tested for the virus that causes Covid 19. Next, notify the local health department in your county. Prescriptions: Levofloxacin [Levaquin 500 mg Tablet] 500 mg PO DAILY #10 tablet Phenazopyridine HCl [Pyridium] 100 mg PO TIDP PRN #14 tablet PRN Reason: Forms: Elevated Blood Pressure Referrals: MIHIR LIM NP [Primary Care Provider] - Follow up as needed
[2020-07-30 03:17] VITALS: BP 137/62
== END 2020-07-30 03:16 | disposition home or self-care (01) ==
LOC: ER 21:39
DX: N30.01 Acute cystitis with hematuria (principal); J18.9 Pneumonia, unspecified organism; Z88.8 Allergy status to other drugs, medicaments and biological substances; Z91.041 Radiographic dye allergy status; Z20.822 Contact with and (suspected) exposure to COVID-19
CPT/HCPCS: 99285; 36415; 87086; 85025; 80053; 81001; 76770; 74176; U0003; A9270 ×3; C9803; 87088; 87186; 87635; J3490